=== PATIENT | female | born 1985 | race Hispanic/Latino ===

== ENCOUNTER 2016-09-19 12:16 | Emergency (ER) | payer SELFPAY ==
[2016-09-19 12:46] VITALS: BP 118/70; PULSE 74; RESP 16; TEMP 97.3; O2SAT 99
--- NOTE | 2016-09-19 13:28 | ED PDOC ---
HPI: Wound Care - HPI Time Seen by Provider: 09/19/16 13:26 Chief Complaint (Nursing): Suture/Staple Removal Chief Complaint (Provider): suture removal History Per: Patient Exam Limitations: no limitations Additional Complaint(s): 12yo F in ED for eval for stuure removal-to right thigh mild reddness and tenderness to are.a no fever chill nasuea or vomiting. Past Medical History Reviewed: Historical Data, Nursing Documentation, Vital Signs Vital Signs: Last Vital Signs Temp 97.3 F L 09/19/16 12:44 Pulse 74 09/19/16 12:44 Resp 16 09/19/16 12:44 BP 118/70 09/19/16 12:44 Pulse Ox 99 09/19/16 12:44 - Medical History PMH: No Chronic Diseases - Family History Family History: States: Unknown Family Hx - Immunization History Hx Tetanus Toxoid Vaccination: Yes - Home Medications Home Medications: Ambulatory Orders Medication Instructions Recorded Acetaminophen with Codeine 1 tab PO Q4 PRN #10 tab 09/09/16 [Tylenol with Codeine No. 3 300 mg-30 mg] Cephalexin [cephalexin] 500 mg PO BID 7 Days 09/09/16 Bacitracin OINT 1 applic TP DAILY #1 tube 09/19/16 - Allergies Allergies/Adverse Reactions: Allergies Allergy/AdvReac Type Severity Reaction Status Date / Time No Known Allergies Allergy Verified 09/09/16 18:27 Review of Systems ROS Statement: Except As Marked, All Systems Reviewed And Found Negative Constitutional: Negative for: Fever, Chills Skin: Positive for: Lesions Physical Exam - Reviewed Nursing Documentation Reviewed: Yes Vital Signs Reviewed: Yes - Physical Exam Appears: Positive for: Well, Non-toxic, No Acute Distress Head Exam: Positive for: ATRAUMATIC, NORMAL INSPECTION, NORMOCEPHALIC Skin: Positive for: Normal Color, Warm, Rash (sutures in place no dehescience no drainage) Cardiovascular/Chest: Positive for: Regular Rate, Rhythm Respiratory: Positive for: CNT, Normal Breath Sounds Extremity: Positive for: Normal ROM Neurologic/Psych: Positive for: Alert, Oriented - ECG O2 Sat by Pulse Oximetry: 99 Medical Decision Making Medical Decision Making: sutures removed no further ER evaluations needed. however pt is concerned about infection considering she has pain-will given be given bacatrcin in case she has swelling, redness and fever. Disposition - Clinical Impression Clinical Impression: Removal of suture - Patient ED Disposition Is Patient to be Admitted: No Counseled Patient/Family Regarding: Diagnosis - Disposition Disposition: Routine/Home Disposition Time: 13:29 Condition: STABLE Prescriptions: Bacitracin OINT 1 applic TP DAILY #1 tube Instructions: Stitches Removal (ED)
== END 2016-09-19 13:37 | disposition home or self-care (01) ==
LOC: H.ER 12:16
DX: Z48.02 Encounter for removal of sutures (principal)